=== PATIENT | male | born 1980 | race Caucasian/White ===

== ENCOUNTER 2017-05-15 08:59 | Observation (INO) | payer OTHER ==
[~2017-05-15] VITALS: Ht 175.3 cm; Wt 69.6 kg
[~2017-05-15 08:59] MED LIST: DOXYCYCL HYC100 MG PO; HYDROCORT14 EX; KEFLEX500 MG PO; NO CURRENT MEDS; ZITHROMAX250 MG PO; ZOFRAN4 MG/TAB PO; ZPAK PO
--- NOTE | 2017-05-15 09:14 | NUR ---
PT AMBULATED TO ROOM 6 WITH A STEADY GAIT.
[2017-05-15 09:47] LABS: HEMATOCRIT 45.9 % (39.0-50.0); HEMOGLOBIN 15.2 g/dl (14.0-18.0); IMMATURE GRANULOCYTES 0.2 % (0.0-1.0); MEAN CELL VOLUME 91.8 fL CALC (80.0-100.0); MEAN CORPUSCULAR HGB 30.4 pG CALC (26.0-32.0); MEAN CORPUSCULAR HGB CONC 33.1 g/L CALC (32.0-36.0); NEUT# 3.6 thou/uL (1.82-7.42); RED CELL DISTRI WIDTH 12.9 % (11.5-15.5); URINE BILIRUBIN - DIPSTICK NEGATIVE (NEGATIVE); URINE BLOOD DIPSTICK TRACE-INTACT (NEGATIVE); URINE COLOR YELLOW; URINE GLUCOSE - DIPSTICK NEGATIVE (NEGATIVE); URINE KETONE NEGATIVE (NEGATIVE); URINE LEUK ESTERASE NEGATIVE (NEGATIVE); URINE NITRITE - DIPSTICK NEGATIVE (Negative); URINE PROTEIN - DIPSTICK NEGATIVE (NEG-TRACE); URINE SPECIFIC GRAVITY 1.025; URINE UROBILINOGEN - DIPSTICK 0.2 E.U./dL (0.2)
--- NOTE | 2017-05-15 10:00 | NUR ---
PT MEDICATED FOR PAIN VIA IV. TOLERATED WELL.
[2017-05-15 10:09] LABS: ALKALINE PHOSPHATASE 73 u/l (38-126); ANION GAP 16 (6-22 (CALC)); BILIRUBIN, TOTAL 0.6 mg/dL (0.0-1.4); BUN 14 mg/dL (9-20); BUN/CREATININE RATIO 13 (12-20 (CALC)); CARBON DIOXIDE 29 mmol/l (22-30); CHLORIDE 105 mmol/l (95-108); CREATININE 1.1 mg/dL (0.7-1.3); GFR > 60 ML/MIN (>=60 (CALC)); GFR FOR AFR.AMER. > 60 ML/MIN (>=60 (CALC)); LIPASE 654 u/l (23-300); SGOT/AST 29 u/l (17-59); SGPT/ALT 44 u/l (21-72); SODIUM 146 mmol/l (137-146); TOTAL PROTEIN 7.4 g/dL (6.3-8.2)
[2017-05-15 10:12] LABS: ALBUMIN 4.5 g/dL (3.2-5.0)
[2017-05-15 10:29] LABS: URINE CLARITY CLEAR
--- NOTE | 2017-05-15 10:45 | NUR ---
PT RETURNED FROM CT. ADVISED OF WAIT TIME.
--- NOTE | 2017-05-15 11:14 | NUR ---
REPORT CALLED TO JENNA MARRUFO, ON MEDSURG. PT TO MEDSURG VIA STRETCHER IN NO APPARENT DISTRESS IV FLUIDS ORDERED. SITE HEALTHY. VS.
[2017-05-15 11:30] VITALS: BP 118/69
--- NOTE | 2017-05-15 11:30 | NUR ---
FROM ER VIA STRETCHER ACCOMPANIED BY LAINEY WEST. AMBULATED TO BED WITH STEADY GAIT. RESPS EVEN AND UNLABORED ON ROOM AIR. #20 LAC INFUSING WITHOUT DIFFICULTY, SITE APPEARS HEALTHY. DENIES PAIN OR DISCOMFORT. ORIENTED TO ROOM AND CALL SYSTEM. SAFETY PRECAUTIONS REINFORCED. BED IN LOWEST POSITION WITH WHEELS LOCKED. CALL LIGHT WITHIN REACH. ENCOURAGED PT TO CALL FOR ANY NEEDS.
--- NOTE | 2017-05-15 13:30 | NUR ---
tolerating clear liquid diet without c/o nausea or abd pain. #20 lac infusing without difficulty, site appears healthy. call light within reach.
--- NOTE | 2017-05-15 16:00 | NUR ---
RESTING IN HIGH FOWLERS WATCHING TV. RESPS EVEN AND UNLABORED ON ROOM AIR. #20 LAC INFUSING WITHOUT DIFFICULTY, SITE APPEARS HEALTHY. MEDICATED WITH TORADOL IVP FOR C/O 5/10 ABD/BACK PAIN. CALL LIGHT WITHIN REACH. WILL CONTINUE TO MONITOR.
--- NOTE | 2017-05-15 16:32 | NUR ---
Patient is doing fine, educated on pain meds. Pt confirmed understanding c
[2017-05-15 16:37] VITALS: BP 113/73
--- NOTE | 2017-05-15 17:49 | NUR ---
MEDICATED WITH LORTAB PO FOR C/O 05/30 ABD/BACK PAIN. FAMILY AT BEDSIDE. RESPS EVEN AND UNLABORED ON ROOM AIR. #20 LAC INFUSING WITHOUT DIFFICULTY, SITE APPEARS HEALTHY. CALL LIGHT WITHIN REACH. WILL CONTINUE TO MONITOR.
[2017-05-15 19:00] VITALS: BP 117/74
--- NOTE | 2017-05-15 19:15 | NUR ---
BEDSIDE REPORT RECEIVED FROM JENNA MEZA. PT SITTING UP IN BED WITH VISITORS AT BEDSIDE. CLEAR LIQUID DINNER GIVEN AT THIS TIME AFTER ZOFRAN. PT C/O MILD PAIN TO ABDOMEN. RESPIRATIONS EVEN AND UNLABORED ON ROOM AIR. PLAN OF CARE DISCUSSED. PT ENCOURAGED TO VERBALIZE CONCERNS. STATES UNDERSTANDING. SAFEY MEASURES IN PLACE. CALL LIGHT WITHIN REACH.
--- NOTE | 2017-05-16 04:00 | NUR ---
PT ASLEEP AT THIS TIME WITH NO SIGNS OF DISTRESS NOTED. RESPIRATIONS EVEN AND ULABORED ON ROOM AIR. SAFETY MEASURES IN PLACE. CALL LIGHT WITHIN REACH.
[2017-05-16 04:10] VITALS: BP 104/60
[2017-05-16 05:57] LABS: MAGNESIUM 2.1 mg/dL (1.6-2.3)
--- NOTE | 2017-05-16 06:01 | NUR ---
PT GIVEN A LORTAB AT HS FOR ABDOMINAL PAIN. ALSO REQUESTED A WARM BLANKET AND PILLOW. NO OTHER REQUESTS AT THIS TIME. IV FLUIDS INFUSING WITIHOUT DIFFICUTLY; IV SITE APPEARS HEALTHY. VISIOR LEFT AT THIS TIME. CALL LIGHT WITHIN REACH.
--- NOTE | 2017-05-16 06:03 | NUR ---
PT REQUESTS PAIN AND NAUSEA MEDICATION; STATES THAT HE FEELS NAUSEOUS AND HEARTBURN LIKE SYMPTOMS. LORTAB AND ZOFRAN GIVEN.
--- NOTE | 2017-05-16 07:00 | NUR ---
RECEIVED BEDSIDE REPORT FROM JANEY. IN HIGH FOWLERS, FAMILY AT BEDSIDE. RESPS EVEN AND UNLABORED ON ROOM AIR. #20 LAC INFUSING WITHOUT DIFFICULTY, SITE APPEARS HEALTHY. DENIES PAIN OR DISCIOMFORT. PLAN OF CARE DISCUSSED. SAFETY PRECAUTIONS REINFORCED. BED IN LOWEST POSITION WITH WHEELS LOCKED. CALL LIGHT WITHIN REACH. ENCOURAGED PT TO CALL FOR ANY NEEDS.
[2017-05-16 08:03] VITALS: BP 106/70
[2017-05-16 11:35] LABS: CHOLESTEROL HDL RATIO 5.2 (<4.4 (CALC))
--- NOTE | 2017-05-16 11:35 | NUR ---
RESTING IN HIGH FOWLERS. RESPS EVEN AND UNLABORED ON ROOM AIR. #20 LAC INFUSING WITHOUT DIFFICULTY, SITE APPEARS HEALTHY. DR IVORY IN WITH PT, NEW ORDERS RECEIVED. DENIES PAIN OR DISCOMFORT. CALL LIGHT WITHIN REACH. WILL CONTINUE TO MONITOR.
--- NOTE | 2017-05-16 12:05 | NUR ---
AMBULATED TO BATHROOM WITH STEADY GAIT. UPON RETURNING TO BED "FELT LIGHTHEADED AND SHAKY WITH A WAVE OF NAUSEA." VITAL SIGNS STABLE, ACCUCHECK 85, MEDICATED WITH ZOFRAN 4MG IVP FOR COMFORT. CALL LIGHT WITHIN REACH. VISITOR AT BEDSIDE. WILL CONTINUE TO MONITOR.
[2017-05-16 12:09] VITALS: BP 111/63
[2017-05-16 15:25] VITALS: BP 95/53
--- NOTE | 2017-05-16 15:30 | NUR ---
MEDICATED WITH LORTAB PO FOR C/O 05/30 HEADACHE, PO FLUIDS OFFERED.
--- NOTE | 2017-05-16 15:39 | NUR ---
AMBULATING IN HALLWAY WITH STEADY GAIT ACCOMPANIED BY GEOFF MAE.
[2017-05-16] MEDS ORDERED: CARAFATE1 G1 PO (16:08)
[2017-05-16] MEDS ORDERED: ZOFRAN ODT4 MG PO (16:08)
[2017-05-16] MEDS ORDERED: PROTONIX40 M2 PO (16:08)
--- NOTE | 2017-05-16 16:50 | NUR ---
IV site discontinued, cath intact. No edema , no redness, voices no discomfort.
--- NOTE | 2017-05-16 17:14 | NUR ---
Discharge instructions given. Patient verbalizes understanding of same. Discharged in stable condition via Wheelchair to Home with spouse. All belongings sent with pt.
== END 2017-05-16 17:10 | disposition home or self-care (01) | DRG 440 ==
LOC: ED 08:59 → ED-I 10:50 → ED 11:02 → MS2 11:03 → UNDODEPER 11:27 → MS2 05-16 17:10
PROVIDERS: Family Medicine; ADMIT Internal Medicine; ATTEND Internal Medicine
DX: K85.90 Acute pancreatitis without necrosis or infection, unspecified (principal); K59.00 Constipation, unspecified; Z87.891 Personal history of nicotine dependence
CPT/HCPCS: G0378; Q9967

== ENCOUNTER 2018-03-13 20:33 | Emergency (ER) | payer OTHER ==
[~2018-03-13] VITALS: Ht 175.3 cm; Wt 70.2 kg
[~2018-03-13 20:33] MED LIST changes: +CARAFATE1 G1 PO; +PROTONIX40 M2 PO; +ZOFRAN ODT4 MG PO
[2018-03-13] MEDS ORDERED: ROBITUSSIN AC10 ML PO (21:23)
[2018-03-13] MEDS ORDERED: ZITHROMAX250 MG PO (21:23)
[2018-03-13 21:30] VITALS: BP 128/89
== END 2018-03-13 21:30 | disposition home or self-care (01) | DRG 153 ==
LOC: ED 20:33
DX: J02.9 Acute pharyngitis, unspecified (principal)

== ENCOUNTER → 2018-04-17 | Outpatient (REF) | payer OTHER ==
[~2018-04-17] MED LIST changes: +ROBITUSSIN AC10 ML PO
== END | disposition home or self-care (01) | DRG 392 ==
LOC: LAB 06:53
PROVIDERS: ATTEND Nurse Practitioner Family
DX: K21.0 Gastro-esophageal reflux disease with esophagitis (principal); R53.83 Other fatigue; Z87.19 Personal history of other diseases of the digestive system

== ENCOUNTER → 2018-04-20 | Outpatient (REF) | payer OTHER | END | disposition home or self-care (01) | DRG 392 | LOC: CT 11:00 | PROVIDERS: ATTEND Nurse Practitioner Family | DX: R10.9 Unspecified abdominal pain (principal); Z87.19 Personal history of other diseases of the digestive system | CPT/HCPCS: Q9967 ==

== ENCOUNTER → 2018-04-22 | Outpatient (REF) | payer OTHER | END | disposition home or self-care (01) | DRG 951 | LOC: LABSPEC 12:38 | PROVIDERS: ATTEND Nurse Practitioner Family | DX: Z12.12 Encounter for screening for malignant neoplasm of rectum (principal) ==

== ENCOUNTER 2022-07-04 09:14 | Day surgery (SDC) | payer OTHER ==
[~2022-07-04] VITALS: Ht 172.7 cm; Wt 72.6 kg
[~2022-07-04 09:14] MED LIST changes: +OMEPRAZOLE DR40 MG PO
[2022-07-04 13:21] VITALS: BP 119/76
== END 2022-07-04 12:33 | disposition home or self-care (01) | DRG 392 ==
LOC: ENDO 09:14
PROVIDERS: ATTEND Internal Medicine Gastroenterology
PROC: 0DBK8ZX Excision of Ascending Colon, Via Natural or Artificial Opening Endoscopic, Diagnostic (ICD-10-PCS; principal; 2022-07-04)
PROC: 0DBL8ZX Excision of Transverse Colon, Via Natural or Artificial Opening Endoscopic, Diagnostic (ICD-10-PCS; 2022-07-04)
PROC: 0DBN8ZX Excision of Sigmoid Colon, Via Natural or Artificial Opening Endoscopic, Diagnostic (ICD-10-PCS; 2022-07-04)
PROC: 0DBP8ZX Excision of Rectum, Via Natural or Artificial Opening Endoscopic, Diagnostic (ICD-10-PCS; 2022-07-04)
PROC: 0DBB8ZX Excision of Ileum, Via Natural or Artificial Opening Endoscopic, Diagnostic (ICD-10-PCS; 2022-07-04)
PROC: 0DBM8ZX Excision of Descending Colon, Via Natural or Artificial Opening Endoscopic, Diagnostic (ICD-10-PCS; 2022-07-04)
PROC: 0DB98ZX Excision of Duodenum, Via Natural or Artificial Opening Endoscopic, Diagnostic (ICD-10-PCS; 2022-07-04)
PROC: 0DB78ZX Excision of Stomach, Pylorus, Via Natural or Artificial Opening Endoscopic, Diagnostic (ICD-10-PCS; 2022-07-04)
PROC: 0DB48ZX Excision of Esophagogastric Junction, Via Natural or Artificial Opening Endoscopic, Diagnostic (ICD-10-PCS; 2022-07-04)
DX: K21.00 Gastro-esophageal reflux disease with esophagitis, without bleeding (principal); K29.70 Gastritis, unspecified, without bleeding; K22.70 Barrett's esophagus without dysplasia; K44.9 Diaphragmatic hernia without obstruction or gangrene; K31.9 Disease of stomach and duodenum, unspecified; K57.30 Diverticulosis of large intestine without perforation or abscess without bleeding; K64.8 Other hemorrhoids; Z79.899 Other long term (current) drug therapy

== ENCOUNTER 2022-08-31 06:38 | Emergency (ER) | payer OTHER ==
[~2022-08-31] VITALS: Ht 172.7 cm; Wt 75.0 kg
[2022-08-31] MEDS ORDERED: BACTRIM DS1 TAB PO (07:25)
[2022-08-31] MEDS ORDERED: METRONIDAZOLE500 MG PO (07:25)
[2022-08-31 08:30] VITALS: BP 133/90
== END 2022-08-31 08:30 | disposition home or self-care (01) | DRG 605 ==
LOC: ED 06:38
PROC: 0HQGXZZ Repair Left Hand Skin, External Approach (ICD-10-PCS; principal; 2022-08-31)
DX: S61.452A Open bite of left hand, initial encounter (principal); W54.0XXA Bitten by dog, initial encounter; Z88.0 Allergy status to penicillin; Z12.5 Encounter for screening for malignant neoplasm of prostate

== ENCOUNTER 2022-09-22 22:09 | Emergency (ER) | payer OTHER ==
[~2022-09-22] VITALS: Ht 170.2 cm; Wt 74.0 kg
[~2022-09-22 22:09] MED LIST changes: +BACTRIM DS1 TAB PO; +METRONIDAZOLE500 MG PO
[2022-09-23] MEDS ORDERED: NAPROXEN500 MG PO (00:02)
[2022-09-23 00:30] VITALS: BP 106/62
== END 2022-09-23 00:30 | disposition home or self-care (01) | DRG 552 ==
LOC: ED 22:09
DX: S23.3XXA Sprain of ligaments of thoracic spine, initial encounter (principal); S33.5XXA Sprain of ligaments of lumbar spine, initial encounter; V49.40XA Driver injured in collision with unspecified motor vehicles in traffic accident, initial encounter

== ENCOUNTER 2022-10-15 18:53 | Emergency (ER) | payer OTHER ==
[~2022-10-15] VITALS: Ht 170.2 cm; Wt 74.0 kg
[~2022-10-15 18:53] MED LIST changes: +NAPROXEN500 MG PO
[2022-10-15 21:36] LABS: BASO% 0.4 % (0-3); EOS% 1.8 % (0-8); HEMATOCRIT 42.8 % (39.0-50.0); HEMOGLOBIN 14.5 g/dl (14.0-18.0); IMMATURE GRANULOCYTES 0.2 % (0.0-5.0); LYMPH% 16.7 % (15-41); MEAN CELL VOLUME 89.9 fL CALC (80.0-100.0); MEAN CORPUSCULAR HGB 30.5 pG CALC (26.0-32.0); MEAN CORPUSCULAR HGB CONC 33.9 g/dL CAL (32.0-36.0); MONO% 5.2 % (2-13); NEUT# 7.2 thou/uL (1.82-7.42); NEUT% 75.7 % (42-76); RED BLOOD COUNT 4.76 mill/uL (4.70-6.10); RED CELL DISTRI WIDTH 12.9 % (11.5-15.5)
[2022-10-15 21:48] LABS: ALBUMIN 4.4 g/dL (3.2-5.0); BILIRUBIN, TOTAL 0.5 mg/dL (0.2-1.3); CREATININE 1.6 mg/dL (0.7-1.3); TOTAL PROTEIN 6.9 g/dL (6.3-8.2)
[2022-10-15 22:56] LABS: URINE BILIRUBIN - DIPSTICK Negative (NEGATIVE); URINE BLOOD DIPSTICK Large (NEGATIVE); URINE GLUCOSE - DIPSTICK Negative (NEGATIVE); URINE KETONE Negative (NEGATIVE); URINE LEUK ESTERASE Negative (NEGATIVE); URINE NITRITE - DIPSTICK Negative (Negative); URINE PH 7.5 (4.5-8.0); URINE PROTEIN - DIPSTICK Negative (NEG-TRACE); URINE UROBILINOGEN - DIPSTICK 0.2 E.U./dL (0.2)
[2022-10-15 22:57] LABS: URINE COLOR Yellow
[2022-10-15 22:59] LABS: URINE WBC 0-2 WBC/hpf (0-5)
[2022-10-16] MEDS ORDERED: LORTAB 5/3255 MG PO (00:27)
[2022-10-16] MEDS ORDERED: TAMSULOSIN0.4 MG PO (00:27)
[2022-10-16 00:34] VITALS: BP 120/78
== END 2022-10-16 00:54 | disposition home or self-care (01) | DRG 694 ==
LOC: ED 18:53
PROVIDERS: Family Medicine
DX: N20.1 Calculus of ureter (principal)

== ENCOUNTER 2023-09-09 10:52 | Emergency (ER) | payer OTHER ==
[~2023-09-09] VITALS: Ht 170.2 cm; Wt 76.0 kg
[2023-09-09] VITALS (12 sets, daily range): BP systolic 123–139; BP diastolic 80–97
[~2023-09-09 10:52] MED LIST changes: +LORTAB 5/3255 MG PO; +TAMSULOSIN0.4 MG PO
[2023-09-09] MEDS ORDERED: IBUPROFEN 600 MG/TAB PO ONE (11:30)
[2023-09-09] MEDS ORDERED: oxyCODONE 5MG/ ACETAMINOPHEN 325MG TAB PO ONE (11:30)
[2023-09-09] MEDS ORDERED: TRAMADOL HYDROC50 M1 PO (13:11)
[2023-09-09] MEDS ORDERED: IBUPROFEN600 MG PO (13:11)
[2023-09-09] MEDS ORDERED: ONDANSETRON 4 MG/TAB ODT PO ONE (13:20)
== END 2023-09-09 13:40 | disposition home or self-care (01) | DRG 605 ==
LOC: ED 10:52
DX: S50.02XA Contusion of left elbow, initial encounter (principal); W19.XXXA Unspecified fall, initial encounter; Y93.89 Activity, other specified; Y92.009 Unspecified place in unspecified non-institutional (private) residence as the place of occurrence of the external cause